=== PATIENT | male | born 1970 | race Caucasian/White ===

== ENCOUNTER 2018-06-17 11:36 | Emergency (ER) | payer OTHER ==
[~2018-06-17] VITALS: Ht 160 cm; Wt 87.8 kg
[~2018-06-17 11:36] MED LIST: CYMBALTA30 MG PO; DICLOFENAC SODI75 MG PO; LYRICA50 MG PO; METANX CAPSULE1 EACH PO; METFORMIN HCL500 MG PO; NAPROXEN500 MG PO; NEURONTIN100 MG PO; NOHOMEMEDS
[2018-06-17 12:43] LABS: BASOPHIL (%) 0.3 % (0-1); EOSINOPHIL (%) 0.2 % (0-5); HEMATOCRIT 43.8 % (38.0-50.0); HEMOGLOBIN 14.7 G/DL (12.5-16.6); IMMATURE GRANULOCYTE (%) 0.2 % (0.0-0.7); LYMPHOCYTE (%) 8.5 % (15-42); LYMPHOCYTE COUNT 0.5 K/uL (1.0-2.8); MCH 28.7 PG (29.0-34.0); MCHC 33.6 G/DL (30.0-36.0); MCV 85.4 FL (86-99); MONOCYTE (%) 4.7 % (3-12); MONOCYTE COUNT 0.3 K/uL (0-0.8); NEUTROPHIL (%) 86.1 % (45-76); NEUTROPHIL COUNT 5.5 K/uL (1.8-6.4); PLATELET COUNT 361 K/uL (156-360); RBC DIS.WIDTH-CV 11.8 % (11.8-14.6); RED BLOOD COUNT 5.13 M/uL (4.00-5.50); WHITE BLOOD COUNT 6.4 K/uL (4.1-10.2)
[2018-06-17 12:55] LABS: ALBUMIN 4.1 g/dL (3.2-4.8)
[2018-06-17 12:56] LABS: CHLORIDE 98 mEq/L (99-109); POTASSIUM 4.7 mEq/L (3.7-5.4); SODIUM 134 mEq/L (136-147)
[2018-06-17 12:58] LABS: GLUCOSE 182 mg/dL (70-99)
[2018-06-17 13:00] LABS: TOTAL BILIRUBIN 0.5 mg/dL (0.0-1.0)
[2018-06-17 13:01] LABS: ALKALINE PHOSPHATASE 59 IU/L (3-129)
[2018-06-17 13:02] LABS: CREATININE 0.8 mg/dL (0.6-1.3); GFR ESTIMATE (CALCULATED) > 59 mL/min/ (58.99-99999)
[2018-06-17 13:03] LABS: AST (GOT) 19 IU/L (2-34); UREA NITROGEN (BUN) 15 mg/dL (9-23)
[2018-06-17 13:05] LABS: ALT (GPT) 24 IU/L (3-49); LIPASE 10 U/L (1.0-51.0)
[2018-06-17 14:33] LABS: APPEARANCE CLEAR ((CLEAR)); BILIRUBIN NEGATIVE; BLOOD NEGATIVE; COLOR STRAW ((YELLOW)); GLUCOSE (STRIP) >=500; KETONES 80; LEUKOCYTES NEGATIVE; NITRITE NEGATIVE; PROTEIN (STRIP) NEGATIVE; SPECIFIC GRAVITY 1.027 (1.000-1.030); UCUL ADDED? NO; UROBILINOGEN 0.2 MG/DL (0.2-1.0)
[2018-06-17 15:20] LABS: TROP-I INTERPRETATION NEGATIVE; TROPONIN-I < 0.01 ng/mL (0.0-0.30)
[2018-06-17] MEDS ORDERED: ZOFRAN4 MG PO (16:14)
[2018-06-17 16:43] VITALS: BP 172/101
== END 2018-06-17 16:46 | disposition home or self-care (01) ==
LOC: EME 11:36
PROVIDERS: Emergency Medicine
DX: R10.30 Lower abdominal pain, unspecified (principal); R11.2 Nausea with vomiting, unspecified; K59.00 Constipation, unspecified; R42 Dizziness and giddiness; R00.0 Tachycardia, unspecified; Z88.2 Allergy status to sulfonamides
CPT/HCPCS: 74177; 80053; 81003; 83605; 83690; 84484; 85025; 93005; 99281; 99285; J2270; J2405; J7030

== ENCOUNTER 2018-06-21 14:28 | Emergency (ER) | payer OTHER ==
[~2018-06-21] VITALS: Ht 162.6 cm; Wt 84.5 kg
[~2018-06-21 14:28] MED LIST changes: +ZOFRAN4 MG PO
[2018-06-21 15:02] LABS: HEMATOCRIT 43.1 % (38.0-50.0); MCH 29.1 PG (29.0-34.0); MCHC 34.8 G/DL (30.0-36.0); MCV 83.5 FL (86-99); RBC DIS.WIDTH-CV 11.8 % (11.8-14.6); RBC DIS.WIDTH-SD 35.8 % (39-53); RED BLOOD COUNT 5.16 M/uL (4.00-5.50); WHITE BLOOD COUNT 11.3 K/uL (4.1-10.2)
[2018-06-21 15:09] LABS: PLATELET COUNT 541 K/uL (156-360)
[2018-06-21 15:14] LABS: ALBUMIN 3.8 g/dL (3.2-4.8); CHLORIDE 96 mEq/L (99-109); POTASSIUM 3.9 mEq/L (3.7-5.4); SODIUM 133 mEq/L (136-147)
[2018-06-21 15:17] LABS: GLUCOSE 183 mg/dL (70-99); TOTAL PROTEIN 6.6 g/dL (6.4-8.3)
[2018-06-21 15:20] LABS: ALKALINE PHOSPHATASE 52 IU/L (3-129); CREATININE 0.8 mg/dL (0.6-1.3); GFR ESTIMATE (CALCULATED) > 59 mL/min/ (58.99-99999)
[2018-06-21 15:21] LABS: UREA NITROGEN (BUN) 10 mg/dL (9-23)
[2018-06-21 15:22] LABS: AST (GOT) 14 IU/L (2-34)
[2018-06-21 15:23] LABS: ALT (GPT) 14 IU/L (3-49)
[2018-06-21 15:35] LABS: TOTAL BILIRUBIN 1.1 mg/dL (0.0-1.0)
[2018-06-21 15:43] LABS: APPEARANCE CLEAR ((CLEAR)); BILIRUBIN NEGATIVE; BLOOD SMALL; COLOR YELLOW ((YELLOW)); GLUCOSE (STRIP) >=500; KETONES 80; LEUKOCYTES NEGATIVE; NITRITE NEGATIVE; PROTEIN (STRIP) NEGATIVE; SPECIFIC GRAVITY 1.006 (1.000-1.030); UROBILINOGEN 0.2 MG/DL (0.2-1.0)
[2018-06-21 16:44] LABS: EPITHELIAL CELLS NONE SEEN /HPF; MUCUS NONE SEEN /LPF; RED BLOOD CELLS RARE /HPF (0-5); WHITE BLOOD CELLS NONE SEEN /HPF (0-5)
[2018-06-21 16:45] LABS: BACTERIA NONE SEEN /HPF; UCUL ADDED? NO
[2018-06-21] MEDS ORDERED: ZOFRAN ODT4 MG PO (18:24)
[2018-06-21] MEDS ORDERED: BENTYL10 MG PO (18:24)
[2018-06-21 18:27] VITALS: BP 141/97
== END 2018-06-21 18:45 | disposition home or self-care (01) ==
LOC: EME 14:28
DX: R10.32 Left lower quadrant pain (principal); R11.2 Nausea with vomiting, unspecified; R19.7 Diarrhea, unspecified; T36.3X5A Adverse effect of macrolides, initial encounter; E86.0 Dehydration; R30.0 Dysuria; R06.02 Shortness of breath; E11.65 Type 2 diabetes mellitus with hyperglycemia; Z88.2 Allergy status to sulfonamides
CPT/HCPCS: 80053; 81003; 85027; 99281; 99284; J2405; J3010; J7030; S0028